=== PATIENT | male | born 1950 | race Caucasian/White ===

== ENCOUNTER 2017-06-25 07:09 | Day surgery (SDC) | payer BC ==
[2017-06-25] MEDS ORDERED: LIDOCAINE HCL 1% MPF SOL ONE (07:48)
[2017-06-25] MEDS ORDERED: PROPOFOL 500 MG/50 ML EMU IV ONE (07:48)
[2017-06-25 08:53] VITALS: TEMP 98.3
[2017-06-25 09:01] VITALS: RESP 20
[2017-06-25 09:12] VITALS: BP 154/77; PULSE 57; O2SAT 98
== END 2017-06-25 09:25 | disposition home or self-care (01) ==
LOC: SURG 07:09
PROVIDERS: ATTEND Internal Medicine Gastroenterology
DX: R13.10 Dysphagia, unspecified (principal); K22.10 Ulcer of esophagus without bleeding; E11.9 Type 2 diabetes mellitus without complications; K22.2 Esophageal obstruction; K44.9 Diaphragmatic hernia without obstruction or gangrene; K22.70 Barrett's esophagus without dysplasia
CPT/HCPCS: 99001; J2001; J2704

== ENCOUNTER 2017-08-20 07:05 | Day surgery (SDC) | payer BC ==
[2017-08-20] MEDS ORDERED: LIDOCAINE HCL 1% MPF 30 SOL ONE (07:18)
[2017-08-20] MEDS ORDERED: PROPOFOL 500 MG/50 ML EMU IV ONE (07:18)
[2017-08-20] MEDS ORDERED: FENTANYL 100MCG/2ML SOL ONE (07:19)
[2017-08-20 09:00] VITALS: BP 129/70; PULSE 55; RESP 18; TEMP 97.3; O2SAT 95
== END 2017-08-20 09:17 | disposition home or self-care (01) ==
LOC: SURG 07:05
PROVIDERS: ATTEND Internal Medicine Gastroenterology
DX: R13.10 Dysphagia, unspecified (principal); K21.9 Gastro-esophageal reflux disease without esophagitis; K22.70 Barrett's esophagus without dysplasia; K44.9 Diaphragmatic hernia without obstruction or gangrene; E11.9 Type 2 diabetes mellitus without complications; Z79.4 Long term (current) use of insulin
CPT/HCPCS: J3010; J2001; J2704